=== PATIENT | female | born 1945 | race Caucasian/White ===

== ENCOUNTER 2023-12-18 05:05 | Emergency (ER) | payer MEDICARE, OTHER ==
[~2023-12-18] VITALS: Ht 147.3 cm; Wt 68.0 kg
[~2023-12-18 05:05] MED LIST: ASPI81EC PO; BENA20 PO; GLYB3 PO; LEVSOD50 PO; METF500 PO; NITRSPRAY SL; PROP20 PO; benazepril; glyburide; levothyroxine
[2023-12-18] MEDS ORDERED: Nitroglycerin 0.4 MG SUBL SL PRN (05:15)
[2023-12-18] MEDS ORDERED: Aspirin 81 MG Chew PO ONE (05:15)
[2023-12-18 05:39] LABS: BASOPHILS ABSOLUTE AUTO 0.08 K/mm3 (0.00-0.23); BASOPHILS PERCENT AUTO 1 % (0-2); EOSINOPHILS ABSOLUTE AUTO 0.29 K/mm3 (0.00-0.68); EOSINOPHILS PERCENT AUTO 5 % (0-6); Hematocrit 45.2 % (33.0-51.0); Hemoglobin 15.2 g/dL (11.5-16.0); IMMATURE GRAN ABSOLUTE AUTO 0.01 K/mm3 (0.00-0.10); IMMATURE GRAN PERCENT AUTO 0 % (0-1); LYMPHOCYTES PERCENT AUTO 38 % (21-46); MONOCYTES ABSOLUTE AUTO 0.63 K/mm3 (0.16-1.47); MONOCYTES PERCENT AUTO 10 % (4-13); Mean Corpuscular HGB Conc 33.6 g/dL (31.5-36.5); Mean Corpuscular Volume 89 fL (80-100); Mean Platelet Volume 12.2 fL (9.1-12.4); NEUTROPHILS PERCENT AUTO 46 % (41-73); Platelet Count 165 K/mm3 (150-400); RDW Coefficient Variation 12.2 % (11.7-14.2); RDW Standard Deviation 39.5 fL (35.1-46.3); Red Blood Cell Count 5.07 M/mm3 (3.80-5.20); White Blood Cell Count 6.51 K/mm3 (4.00-11.30)
[2023-12-18 06:03] LABS: Albumin, Blood 3.9 g/dL (3.4-5.0); Albumin/Globulin Ratio 1.3 (0.8-1.8); Bilirubin, Total 0.8 mg/dL (0.1-1.0); Bun/Creatinine Ratio 16.6 (12.0-20.0); Calcium, Blood 8.8 mg/dL (8.5-10.1); Creatinine, Blood 0.84 mg/dL (0.40-1.00); Potassium, Blood 3.7 mmol/L (3.5-5.5); Total Protein, Blood 6.9 g/dL (6.4-8.2)
[2023-12-18] MEDS ORDERED: METOPROL PO (07:23)
== END 2023-12-18 08:35 | disposition home or self-care (01) ==
LOC: ER 05:05
PROVIDERS: Emergency Medicine
DX: R07.9 Chest pain, unspecified (principal); E11.9 Type 2 diabetes mellitus without complications; I10 Essential (primary) hypertension; Z79.84 Long term (current) use of oral hypoglycemic drugs; Z79.82 Long term (current) use of aspirin; Z79.899 Other long term (current) drug therapy; Z88.8 Allergy status to other drugs, medicaments and biological substances
CPT/HCPCS: 71045; 80053; 83605; 83690; 83880; 84484; 85025; 93005; 93010; 99285-25; A9270

== ENCOUNTER 2024-08-10 16:38 | Observation (INO) | payer MEDICARE, OTHER ==
[~2024-08-10] VITALS: Ht 147.3 cm; Wt 70.3 kg
[~2024-08-10 16:38] MED LIST changes: +METOPROL PO
[2024-08-10 17:17] LABS: BASOPHILS ABSOLUTE AUTO 0.07 K/mm3 (0.00-0.23); BASOPHILS PERCENT AUTO 1 % (0-2); EOSINOPHILS PERCENT AUTO 2 % (0-6); Hematocrit 43.3 % (33.0-51.0); Hemoglobin 14.8 g/dL (11.5-16.0); IMMATURE GRAN ABSOLUTE AUTO 0.02 K/mm3 (0.00-0.10); IMMATURE GRAN PERCENT AUTO 0 % (0-1); LYMPHOCYTES ABSOLUTE AUTO 2.22 K/mm3 (0.84-5.20); LYMPHOCYTES PERCENT AUTO 24 % (21-46); MONOCYTES ABSOLUTE AUTO 0.71 K/mm3 (0.16-1.47); MONOCYTES PERCENT AUTO 8 % (4-13); Mean Corpuscular HGB 30.4 pg (26.0-34.0); Mean Corpuscular HGB Conc 34.2 g/dL (31.5-36.5); Mean Corpuscular Volume 89 fL (80-100); Mean Platelet Volume 11.7 fL (9.1-12.4); NEUTROPHILS ABSOLUTE AUTO 6.03 K/mm3 (1.96-9.15); NEUTROPHILS PERCENT AUTO 65 % (41-73); Platelet Count 162 K/mm3 (150-400); RDW Coefficient Variation 11.9 % (11.7-14.2); Red Blood Cell Count 4.87 M/mm3 (3.80-5.20); White Blood Cell Count 9.25 K/mm3 (4.00-11.30)
[2024-08-10] MEDS ORDERED: BASAGLAR K100 UNIT/3 SC (17:35)
[2024-08-10] MEDS ORDERED: BENAZEPRIL HCL40 M4 PO (17:35)
[2024-08-10] MEDS ORDERED: METOPROLOL TART25 MG PO (17:35)
[2024-08-10] MEDS ORDERED: ACTEMRA162 MG/0.1 SC (17:39)
[2024-08-10 17:41] LABS: Albumin/Globulin Ratio 1.4 (0.8-1.8); Bun/Creatinine Ratio 16.8 (12.0-20.0); Calcium, Blood 9.1 mg/dL (8.5-10.1); Creatinine, Blood 0.95 mg/dL (0.40-1.00); Globulin, Blood 2.9 g/dL (2.2-4.0); Potassium, Blood 3.7 mmol/L (3.5-5.5); Total Protein, Blood 6.9 g/dL (6.4-8.2)
[2024-08-10] MEDS ORDERED: Clopidogrel Bisulfate 75 MG Tab PO ONE (18:50)
[2024-08-10] MEDS ORDERED: Aspirin 81 MG Chew PO ONE (18:50)
[2024-08-10] MEDS ORDERED: Acetaminophen 325 MG TABLET PO PRN (19:40)
[2024-08-10] MEDS ORDERED: Polyethylene Glycol 3350 17 gm PO PRN (19:40)
[2024-08-10] MEDS ORDERED: HydrALAZINE HCl 20 MG / ML 1ML Vial IV PRN (19:45)
[2024-08-10 21:00] VITALS: BP 156/73
[2024-08-10] MEDS ORDERED: Docusate Sodium/Senna 1 Tab PO SCH (21:00)
[2024-08-10 23:24] VITALS: BP 126/77
[2024-08-11 03:41] VITALS: BP 114/60
[2024-08-11 03:48] LABS: Hematocrit 40.4 % (33.0-51.0); Hemoglobin 13.3 g/dL (11.5-16.0); Mean Corpuscular HGB Conc 32.9 g/dL (31.5-36.5); Mean Corpuscular Volume 91 fL (80-100); Mean Platelet Volume 12.5 fL (9.1-12.4); Platelet Count 155 K/mm3 (150-400); Red Blood Cell Count 4.44 M/mm3 (3.80-5.20); White Blood Cell Count 7.01 K/mm3 (4.00-11.30)
[2024-08-11 04:26] LABS: Albumin, Blood 3.3 g/dL (3.4-5.0); Anion Gap 10 mmol/L (3-11); Blood Urea Nitrogen 13 mg/dL (8-24); Bun/Creatinine Ratio 16.8 (12.0-20.0); CO2, Blood 23 mmol/L (21-32); Calcium, Blood 8.1 mg/dL (8.5-10.1); Chloride, Blood 106 mmol/L (98-108); Creatinine, Blood 0.77 mg/dL (0.40-1.00); Glomerular Filtration Rate 79 (60-); Glucose, Blood 122 mg/dL (70-99); Magnesium, Blood 1.9 mg/dL (1.6-2.4); Sodium, Blood 135 mmol/L (136-145)
--- NOTE | 2024-08-11 06:12 | NUR ---
SHIFT SUMMARY PT A&OX4. VSS ON RA >96%. ON TELE PT NSR IN 80s. Q4HR NUERO CHECKS, ALL WNL. PT DID C/O HEADACHE DURING THE NIGHT, RELIEVED WITH PRN TYLENOL. MRI SCREENING FORM COMPLETED. PT AWAITING MRI THIS AM ALONG WITH ECHO. PT HAD NO C/O WEAKNESS OR VISION CHANGES THROUGHOUT NIGHT. NO FURTHER QUESTIONS OR CONCERNS AT THIS TIME. WILL CONTINUE WITH PLAN OF CARE.
--- NOTE | 2024-08-11 07:21 | NUR ---
ASSUMPTION NOTE: THIS RN TO ASSUME CARE OF PT. PT SITTING IN BED ON PHONE,LISTENING TO MUSIC. PT AWARE AND WAITING FOR IMAGING TODAY. PT HAS CALL LIGHT WITHIN REACH, BED IN LOWEST POSITION.
[2024-08-11] MEDS ORDERED: Insulin Human Lispro 100 Units/ML 3ML Syringe SC SCH (07:30)
[2024-08-11 07:43] VITALS: BP 148/69
[2024-08-11] MEDS ORDERED: Clopidogrel Bisulfate 75 MG Tab PO SCH (09:00)
[2024-08-11] MEDS ORDERED: Enoxaparin 40 MG/0.4 ML SYR SC SCH (09:00)
[2024-08-11] MEDS ORDERED: Aspirin 81 MG Chew PO SCH (09:00)
[2024-08-11 11:20] VITALS: BP 127/99
--- NOTE | 2024-08-11 13:35 | NUR ---
MD HUNG: MD HUNG SPOKE WITH PT REGARDING IMAGING RESULTS. PENDING ECHO RESULTS PT IS OK TO GO HOME.
[2024-08-11] MEDS ORDERED: CLOP75 PO (16:17)
[2024-08-11] MEDS ORDERED: ATOR40TA PO (16:17)
[2024-08-11] MEDS ORDERED: ASPI81CH PO (16:17)
[2024-08-11] MEDS ORDERED: PANT40 PO (16:18)
--- NOTE | 2024-08-11 16:51 | NUR ---
DISCHARGE NOTE: PATIENT IS ALERT AND ORIENTED X4 & COOPERATIVE WITH HER CARE. TELE TAKEN OFF AN DIV TAKNE OUT. PT IS RIDE. PT WALKED OUT AND WENT OVER DISCHARGE INFORMATION THAT WAS SENT WITH PT. PT AWARE TO SCHEDULE FOLLOW UP APPOINTMENTS WITH PRIMARY AND RHUMATOLOGIST.
== END 2024-08-11 16:30 | disposition home or self-care (01) ==
LOC: ER 16:38 → PCU 16:39
PROVIDERS: Student in an Organized Health Care Education/Training Program; ADMIT Internal Medicine
DX: G45.9 Transient cerebral ischemic attack, unspecified (principal); I16.0 Hypertensive urgency; E11.9 Type 2 diabetes mellitus without complications; E03.9 Hypothyroidism, unspecified; Z79.82 Long term (current) use of aspirin; Z79.899 Other long term (current) drug therapy
CPT/HCPCS: 36415; 70450; 70496; 70498; 70551; 80053; 80069; 82947; 83735; 85025; 85027; 85651; 93005; 93010; 93306; 96372; 99285-25; A9270; G0378; J1650; Q9967